=== PATIENT | female | born 1990 | race American Indian/Alaskan Native ===

== ENCOUNTER 2020-09-04 12:59 | Emergency (ER) | payer SELFPAY ==
[2020-09-04 14:27] VITALS: BP 108/62
[2020-09-04] MEDS ORDERED: ACETAMINOPHEN 325 MG TAB PO ONE (15:34)
--- NOTE | 2020-09-04 15:34 | Emergency Department Report ---
ED Back Pain/Injury HPI - General Chief Complaint: Back Pain/Injury Stated Complaint: LT SHOULDER/SOB/CHEST TIGHT Time Seen by Provider: 09/04/20 15:07 Source: patient Limitations: No Limitations - History of Present Illness Initial Comments: 29-year-old female with no significant past medical history presents to the ER today with complaints of pain to her left upper back area. Patient states that she has been having this pain since towards the end of 2019. She denies any trauma/injury at the time. She states that the pain goes up into her neck and when she pushes over the left clavicle she can feel it in her upper back. She states that the pain is worse when she takes a very deep breath and also when she lays down on the left side and again when she pushes over her left clavicle. She states that she has not had any numbness, tingling or weakness and she denies any associated headache, shortness of breath wheezing, coughing, lower extremity swelling or calf pain. Patient states that she has seen a chiropractor once for and has had a massage but she states that those really did not help. She has not taken any wqfb-[id number] medications to see if this will help the pain. She denies any strenuous activity or injury recently. She states that the reason why she is here is because the pain has been increasing intensity in the past few days. She has never seen an independent living specialist MD Complaint: back pain -: month(s) (since 2019) - Related Data Previous Rx's Medication Instructions Recorded Last Taken Type Ibuprofen [Motrin] 800 mg PO Q8HR PRN #30 tablet 09/04/20 Unknown Rx methylPREDNISolone [Medrol 4MG 4 mg PO DAILY #1 tab.ds.pk 09/04/20 Unknown Rx DOSEPAK (21 tabs)] Allergies Allergy/AdvReac Type Severity Reaction Status Date / Time No Known Allergies Allergy Verified 09/04/20 15:42 ED Review of Systems ROS: Stated complaint: LT SHOULDER/SOB/CHEST TIGHT Other details as noted in HPI Comment: All other systems reviewed and negative Constitutional: denies: chills, fever Eyes: denies: eye pain, eye discharge, vision change ENT: denies: ear pain, throat pain, dental pain, hearing loss, epistaxis, congestion Cardiovascular: denies: chest pain, palpitations, dyspnea on exertion, orthopnea, edema, syncope, paroxysmal nocturnal dyspnea Gastrointestinal: denies: abdominal pain, nausea, vomiting, diarrhea, constipation, hematemesis, melena Genitourinary: denies: urgency, dysuria, frequency, hematuria, discharge, abnormal menses, dyspareunia Musculoskeletal: back pain. denies: joint swelling, arthralgia, myalgia Skin: denies: change in color, change in hair/nails, pruritus Neurological: denies: headache, weakness, numbness, paresthesias, confusion, abnormal gait, vertigo Psychiatric: denies: anxiety, depression, auditory hallucinations, visual hallucinations, homicidal thoughts, suicidal thoughts Hematological/Lymphatic: denies: easy bleeding, easy bruising ED Past Medical Hx - Past Medical History Previous Medical History?: No - Surgical History Past Surgical History?: No - Social History Smoking Status: Never Smoker Substance Use Type: Alcohol, Marijuana - Medications Home Medications: Home Medications Medication Instructions Recorded Confirmed Last Taken Type Ibuprofen [Motrin] 800 mg PO Q8HR PRN #30 tablet 09/04/20 Unknown Rx methylPREDNISolone [Medrol 4MG 4 mg PO DAILY #1 tab.ds.pk 09/04/20 Unknown Rx DOSEPAK (21 tabs)] ED Physical Exam - General Limitations: No Limitations General appearance: alert, in no apparent distress - Head Head exam: Present: atraumatic, normocephalic, normal inspection - Eye Eye exam: Present: normal appearance, PERRL, EOMI Pupils: Present: normal accommodation - ENT ENT exam: Present: normal exam, mucous membranes moist - Neck Neck exam: Present: normal inspection, full ROM. Absent: meningismus - Respiratory Respiratory exam: Present: normal lung sounds bilaterally, other (mild ttp left clavicle). Absent: respiratory distress, wheezes, rales, rhonchi, chest wall tenderness - Cardiovascular Cardiovascular Exam: Present: regular rate, normal rhythm, normal heart sounds - GI/Abdominal GI/Abdominal exam: Present: soft. Absent: distended, tenderness, guarding, rebound - Back Exam Back exam: Present: normal inspection, full ROM. Absent: tenderness (No apparent tenderness to palpation over the left scapula or the paraspinal muscle in the interscapular space no over the thoracic spine no other cervical spinal trapezius muscle), muscle spasm - Neurological Exam Neurological exam: Present: alert, oriented X3, CN II-XII intact, normal gait - Psychiatric Psychiatric exam: Present: normal affect, normal mood - Skin Skin exam: Present: intact ED Course Vital Signs 09/04/20 14:24 Temperature 98.4 F Pulse Rate 95 H Respiratory 18 Rate Blood Pressure 108/62 O2 Sat by Pulse 100 Oximetry ED Medical Decision Making - EKG Data EKG shows normal: sinus rhythm Rate: normal (73) - Radiology Data Radiology results: report reviewed Patient: LEON CLARKE MR#: [id number] : 1990 Acct:[id number] Age/Sex: 29 / F ADM Date: 09/04/20 Loc: ED Attending Dr: Ordering Physician: MICKIE LARSON Date of Service: 09/04/20 Procedure(s): XR chest routine 2V Accession Number(s): [id number] cc: MICKIE LARSON Fluoro Time In Minutes: CHEST 2 VIEWS INDICATION / CLINICAL INFORMATION: PLEURITIC UPPER BACK PAIN. COMPARISON: None available. FINDINGS: SUPPORT DEVICES: None. HEART / MEDIASTINUM: No significant abnormality. LUNGS / PLEURA: No significant pulmonary or pleural abnormality. Considerable lucency at the right lung apex could represent a tiny apical pneumothorax. No definite lung markings are seen in this region. Similar findings are seen in the left lung apex, however to a lesser degree, and faint lung markings can be seen in this region. ADDITIONAL FINDINGS: No significant additional findings. IMPRESSION: 1. Findings concerning for a tiny right apical pneumothorax. CRITICAL RESULT: Time of Discovery (LAMINATED PLASTICS ASSEMBLER AND GLUER/CDT): 1515 Time of Communication (LAMINATED PLASTICS ASSEMBLER AND GLUER/CDT): 1520 Licensed Practitioner Receiving Report: Dr. Guevara Read-Back Performed: Yes. Signer Name: Latrice Camacho MD Signed: 09/04/2020 4:23 PM Workstation Name: [id number] Transcribed By: RH Dictated By: LATRICE CAMACHO III Electronically Authenticated By: LATRICE CAMACHO III Signed Date/Time: 09/04/20 162 DD/ 12 TD/TT: Patient: LEON CLARKE MR#: [id number] : 1990 Acct:[id number] Age/Sex: 29 / F ADM Date: 09/04/20 Loc: ED Attending Dr: Ordering Physician: MICKIE LARSON Date of Service: 09/04/20 Procedure(s): CT chest wo con Accession Number(s): [id number] cc: MICKIE LARSON CT chest wo con INDICATION: Pleuritic left upper back pain/abnl cxr. TECHNIQUE: All CT scans at this location are performed using CT dose reduction for ALARA by means of automated exposure control. COMPARISON: None available. FINDINGS: Mediastinum, gladis and axillae are negative. Upper abdomen is unremarkable. Lungs are fully expanded and clear. No pneumothorax. IMPRESSION: 1. No significant abnormality. No pneumothorax. Signer Name: Gurdeep Hernandez MD Signed: 09/04/2020 5:59 PM Workstation Name: [id number] Transcribed By: TM Dictated By: Gurdeep Hernandez MD Electronically Authenticated By: Gurdeep Hernandez MD Signed Date/Time: 09/04/201758 DD/ 56 TD/TT: - Medical Decision Making 29-year-old female with no significant past medical history presents to the ER today with complaints of pain to her left upper back area. Patient states that she has been having this pain since towards the end 2019. She denies any trauma/injury at the time. She states that the pain goes up into her neck and when she pushes over the left clavicle she can feel it in her upper back. She states that the pain is worse when she takes a very deep breath and also when she lays down on the left side and again when she pushes over her left clavicle. She states that she has not had any numbness, tingling or weakness and she denies any associated headache, shortness of breath wheezing, coughing, lower extremity swelling or calf pain. Patient states that she has seen a chiropractor once for and has had a massage but she states that those really did not help. She has not taken any kqbr-doi-xgkdura medications to see if this will help the pain. She denies any strenuous activity or injury recently. She states that the reason why she is here is because the pain has been increasing intensity in the past few days. She has never seen an independent living specialist 1628: Radiologist called and spoke to Dr Guevara -- small pneumo on CXR, not big enough for chest tube Patient is currently stable and not in any acute respiratory distress with normal vital signs Dr Guevara recommended consult record retrieval specialist. Official radiology report read -- IMPRESSION: Findings concerning for a tiny right apical pneumothorax. Discussed case with Dr Wu, record retrieval specialist and he recommends doing a CT of the chest. Discussed recommendations per pulmonology consult with Dr Guevara and agree with non contrasted chest CT. discussed x-ray results with patient and the reason for us getting a CT scan. She expressed understanding and agreed with getting the test done. 1825: CT scan of the chest shows nothing acute including no pneumothorax. Again patient is not toxic, not in any pain or respiratory distress, she is well- appearing and appears well-hydrated. Her vital signs are stable. EKG is normal. Her history, physical exam and current condition does not suggest PE (perc 0), unstable angina, NH, acute cord compression or any other emergent conditions warranting additional testing, admission, specialist consult or transfer at this time. Suspect her pain is more musculoskeletal in nature and could even be related to a pinched nerve at this time. Discussed CT results, as well as suspected diagnosis and treatment plan with patient recommend that she follows up with the warehouse distribution specialist for outpatient MRI. She expressed understanding of instructions and agree with plan. She was stable at time of discharge. Critical care attestation.: If time is entered above; I have spent that time in minutes in the direct care of this critically ill patient, excluding procedure time. ED Disposition Clinical Impression: Upper back pain on left side, Spasm of muscle, back Disposition: DC-01 TO HOME OR SELFCARE Is pt being admited?: No Does the pt Need Aspirin: No Condition: Stable Instructions: Muscle Cramps and Spasms, [id number], Chronic Back Pain, [id number] Additional Instructions: I recommend take the medrol dose pack and the motrin as prescribed. I recommend following up with warehouse distribution specialist for outpatient MRI as discussed. Return to ED if worse. Prescriptions: methylPREDNISolone [Medrol 4MG DOSEPAK (21 tabs)] 4 mg PO DAILY #1 tab.ds.pk Ibuprofen [Motrin] 800 mg PO Q8HR PRN #30 tablet PRN Reason: pain Referrals: VAL LINTON MD [Staff Physician] - 3-5 Days (Primary care physician) [facility] [Provider Group] - 3-5 Days (collective bargaining specialist Ask for the [place] location) Time of Disposition: 18:20
--- NOTE | 2020-09-04 16:28 | XRay Report ---
CHEST 2 VIEWS INDICATION / CLINICAL INFORMATION: PLEURITIC UPPER BACK PAIN. COMPARISON: None available. FINDINGS: SUPPORT DEVICES: None. HEART / MEDIASTINUM: No significant abnormality. LUNGS / PLEURA: No significant pulmonary or pleural abnormality. Considerable lucency at the right suzie ng apex could represent a tiny apical pneumothorax. No definite lung markings are seen in this region . Similar findings are seen in the left lung apex, however to a lesser degree, and faint lung marking s can be seen in this region. ADDITIONAL FINDINGS: No significant additional findings. IMPRESSION: 1. Findings concerning for a tiny right apical pneumothorax. CRITICAL RESULT: Time of Discovery (TACTICAL/MOBILE WATCH OFFICER/CDT): 1515 Time of Communication (TACTICAL/MOBILE WATCH OFFICER/CDT): 1520 Licensed Practitioner Receiving Report: Dr. Guevara Read-Back Performed: Yes. Signer Name: Arnav Camacho MD Signed: 09/04/2020 4:23 PM Workstation Name: [id number]
--- NOTE | 2020-09-04 18:03 | Cat Scan Report ---
CT chest wo con INDICATION: Pleuritic left upper back pain/abnl cxr. TECHNIQUE: All CT scans at this location are performed using CT dose reduction for ALARA by means of automated e xposure control. COMPARISON: None available. FINDINGS: Mediastinum, gladis and axillae are negative. Upper abdomen is unremarkable. Lungs are fully expanded a nd clear. No pneumothorax. IMPRESSION: 1. No significant abnormality. No pneumothorax. Signer Name: Gurdeep Hernandez MD Signed: 09/04/2020 5:59 PM Workstation Name: [id number]
--- NOTE | 2020-09-10 12:38 | Electrocardiograph Report ---
[facility] Test Date: 2020-09-04 Test Time: 16:16:39 Pat Name: LEON CLARKE Department: Room: Gender: F Paper Spooler: [id number] : 1990 Requested By: MICKIE LARSON Order Number: [id number] Reading MD: Jasmin Brennan Measurements Intervals [place] Rate: 73 P: 52 MI: 137 QRS: 41 QRSD: 90 T: 36 QT: 376 QTc: 414 Interpretive Statements Sinus rhythm No previous ECG available for comparison Electronically Signed On 09-10-2020 12:37:49 EDT by Jasmin Brennan
== END 2020-09-04 18:43 | disposition home or self-care (01) ==
LOC: ED 12:59
DX: M62.830 Muscle spasm of back (principal); M54.9 Dorsalgia, unspecified; F12.90 Cannabis use, unspecified, uncomplicated; Z79.899 Other long term (current) drug therapy
CPT/HCPCS: 71046; 71250; 93005